=== PATIENT | male | born 1945 | race Caucasian/White ===

== ENCOUNTER 2017-08-11 12:54 | Outpatient (CLI) | payer MEDICARE, SELFPAY ==
--- NOTE | 2017-08-11 14:42 | CT ---
NONCONTRAST CT HEAD: 08/11/2017 HISTORY: Subdural hemorrhage. The patient had subdural hematomas two months ago and is post repair. This is a follow-up evaluation. COMPARISON: CT head obtained at the [facility] on 06/30/2017. FINDINGS: There are bifrontal bur holes present. There are very tiny low density subdural collections, related to the patient's known subdural hematomas, but these subdural hematomas have significantly improved when compared to the prior study. No new intraparenchymal or extraaxial hemorrhages seen. There is no mass effect or midline shift. No acute infarction is seen. The ventricular system is normal in s ize, shape, and position. No other interval change. IMPRESSION: Continued improvement in bilateral subdural collections/hematomas, with only miniscule subdural colle ctions present on today's examination greater on the left. POS: CORNELIUS
== END 2017-08-11 12:55 | disposition home or self-care (01) ==
LOC: TBSIIMAG 12:54
PROVIDERS: ATTEND Surgery
DX: I62.03 Nontraumatic chronic subdural hemorrhage (principal)
CPT/HCPCS: 70450

== ENCOUNTER 2017-10-01 09:32 | Outpatient (CLI) | payer MEDICARE | END 2017-10-01 09:33 | disposition home or self-care (01) | LOC: EEG 09:32 | PROVIDERS: ATTEND Psychiatry & Neurology Neurology | DX: I62.00 Nontraumatic subdural hemorrhage, unspecified (principal); R56.9 Unspecified convulsions | CPT/HCPCS: 95816 ==